=== PATIENT | female | born 2000 | race Caucasian/White ===

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

== ENCOUNTER 2022-02-18 19:05 | Emergency (ER) | payer MEDICAID ==
[~2022-02-18 19:05] MED LIST: FLUC200T PO; METR500T PO; NITR-65 PO; NYST15CR TP; NYST1POW22 TOP
--- NOTE | 2022-02-18 19:26 | ED Cough/URI ---
General Chief Complaint: Cough/Cold/Flu Symptoms Stated Complaint: COUGH, PEREZ, CONGESTED, CHILLS Source: patient History of Present Illness Date Seen by Provider: Feb 18, 2022 Time Seen by Provider: 19:20 Initial Comments PT ARRIVES VIA POV FROM HOME STATES SHE BEGAN FEELING SICK 2 DAYS AGO 02/16/22 C/O COUGH/CONGESTION C/O HEADACHE C/O CHILLS--HAS NOT CHECKED TEMP C/O FATIGUE C/O BODY ACHES NO SHORTNESS OF BREATH NO GI SYMPTOMS NO SORE THROAT OR LOSS OF TASTE OR SMELL HAS NOT HAD COVID OR FLU VACCINES BOYFRIEND IS HERE FOR SAME SYMPTOMS NO DIFFERENT TODAY HAS NOT SOUGHT CARE UNTIL TODAY HAS NOT TAKEN ANYTHING FOR SYMPTOMS PCP; [facility] Allergies and Home Medications Allergies Coded Allergies: No Known Drug Allergies (Unverified , 10/22/20) Patient Home Medication List Home Medication List Reviewed: Yes Fluconazole (Diflucan) 200 Mg Tablet, 200 MG PO DAILY Prescribed by: ENMANUEL WEBSTER on 10/22/20222 Metronidazole (Flagyl) 500 Mg Tablet, 500 MG PO QID Prescribed by: ENMANUEL WEBSTER on 10/22/20222 Nitrofurantoin Monohyd/M-Cryst (Macrobid 100 mg Capsule) 100 Mg Capsule, 1 TAB PO BID Prescribed by: ENMANUEL WEBSTER on 10/22/20231 Nystatin (Nystatin) 1 Each Powder.ea., 1 EACH TOP BID Prescribed by: ENMANUEL WEBSTER on 10/22/20222 Nystatin (Nystatin) 15 Gm Cream..g., 15 GM TP BID Prescribed by: ENMANUEL WEBSTER on 10/22/20222 Review of Systems Review of Systems Constitutional: see HPI, chills, malaise EENTM: see HPI, nose congestion Respiratory: see HPI, cough; No short of breath Cardiovascular: no symptoms reported Gastrointestinal: no symptoms reported Genitourinary: no symptoms reported Musculoskeletal: see HPI (BODY ACHES) Skin: no symptoms reported Psychiatric/Neurological: See HPI, Headache Past Kunqqaj-Vcnzzo-Bvjgob Hx Patient Social History Tobacco Use?: Yes Tobacco type used: Cigarettes Smoking Status: Former Smoker Substance use?: No Alcohol Use?: Yes (HISTORY OF HEAVY USE, CLAIMS NO RECENT USE. ) Seasonal Allergies Seasonal Allergies: Yes Past Medical History Surgeries: Yes (TENDON REPAIR RIGHT HAND) Orthopedic, Tonsillectomy Respiratory: Yes Asthma Cardiac: No Neurological: No Reproductive Disorders: No Genitourinary: No Gastrointestinal: No Musculoskeletal: Yes (RIGHT HAND TENDON REPAIR) Endocrine: Yes (OBESITY) HEENT: Yes (S/P TONSILLECTOMY) Cancer: No Psychosocial: No Integumentary: No Blood Disorders: No Physical Exam Vital Signs - First Documented 02/18/22 19:15 Temp 37.0 Pulse 101 Resp 17 B/P (MAP) 121/80 (94) Capillary Refill : Height: '" Weight: lbs. oz. 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 ) Progress/Results/Core Measures Suspected Sepsis SIRS Temperature: Pulse: Respiratory Rate: Blood Pressure / Mean: Results/Orders Lab Results Laboratory Tests Test 02/18/22 19:20 Range/Units Influenza Type A (RT-PCR) Not Detected Not Detecte Influenza Type B (RT-PCR) Not Detected Not Detecte SARS-CoV-2 RNA (RT-PCR) Detected H Not Detecte My Orders Orders - ENMANUEL WEBSTER DO Covid 19 Inhouse Test (02/18/22 19:19) Influenza A And B By Pcr (02/18/22 19:19) Isolation Central Supply Req (02/18/22 19:19) Vital Signs/I&O 02/18/22 19:15 Temp 37.0 Pulse 101 Resp 17 B/P (MAP) 121/80 (94) Capillary Refill : Progress Note : Progress Note PLACED IN ISOLATION ROOM PPE WORN COVID AND FLU TESTING DONE NO COUGH NO DYSPNEA NO HYPOXIA NO FEVER DURING ER STAY BOYFRIEND ALSO HAS TESTED + FOR COVID TODAY PT DOES NOT REQUIRE ANY TREATMENT AT THIS TIME. Departure Impression Primary Impression: COVID-19 virus infection Disposition: 01 HOME, SELF-CARE Condition: Stable Departure-Patient Inst. Decision time for Depature: 20:20 Referrals: [facility] (PCP/Family) Primary Care Physician Patient Instructions: COVID-19 ED, Preventing the Spread of an Infectious Disease Add. Discharge Instructions: LOTS OF CLEAR LIQUIDS TYLENOL AND MOTRIN NEEDED FOR PAIN OR FEVER OVER THE COUNTER MEDICATIONS FOR COUGH/CONGESTION FOLLOW UP WITH [facility] NEEDED QUARANTINE FOR 10 DAYS All discharge instructions reviewed with patient and/or family. Voiced understanding. ENMANUEL WEBSTER DO Feb 18, 2022 19:26
[2022-02-18 20:33] VITALS: BP 124/95
== END 2022-02-18 20:33 | disposition home or self-care (01) ==
LOC: EDUNIT# 19:05 → ER 19:08
DX: U07.1 COVID-19 (principal); E66.9 Obesity, unspecified; Z87.891 Personal history of nicotine dependence
CPT/HCPCS: 87636; 99283